=== PATIENT | male | born 1945 | race American Indian/Alaskan Native ===

== ENCOUNTER 2018-07-01 14:35 | Emergency (ER) | payer MEDICARE ==
--- NOTE | 2018-07-01 15:04 | Emergency Department Report ---
ED CPR HPI - General Stated Complaint: CARDIAC ARREST Time Seen by Provider: 07/01/18 14:53 Source: EMS Mode of arrival: Stretcher Limitations: Altered Mental Status, Physical Limitation - History of Present Illness Initial Comments: Patient arrived via EMS. Patient's been down for unknown amount of time. EMS is been doing CPR for 30 minutes. Report received from EMS. Patient shocked once and given multiple medications. Compression of the entire time. Patient has an oral airway but not an ET tube. . EMS patient's called EMS because he was found down in their bedroom. On known amount time down. Patient was shocked one time. Complaint: found unresponsive Place: home Bystander CPR Performed: No AED Applied by Bystander/[employer] Assistant: Yes Shock Advised: Yes Number of Shocks Delivered: 1 Initial Findings in the Field: unresponsive, no respirations, no pulse, VTACH/VFIB ROSC in the Field: No Associated Injuries: No Treatments Prior to Arrival: BMV, other airway device, chest compressions, defribrillated shocks # (1), epinephrine mgs #, sodium bicarbonate ED Review of Systems ROS: Stated complaint: CARDIAC ARREST Other details as noted in HPI Comment: Unobtainable due to pts medical conditions ED Past Medical Hx - Past Medical History Previous Medical History?: Yes Hx Hypertension: Yes Hx Heart Attack/AMI: Yes Hx Congestive Heart Failure: Yes Hx Diabetes: Yes - Surgical History Past Surgical History?: Yes Additional Surgical History: pacer - Family History Family history: no significant - Social History Smoking Status: Never Smoker Substance Use Type: None ED Physical Exam - General Limitations: Altered Mental Status, Physical Limitation General appearance: obtunded - Head Head exam: Present: atraumatic, normocephalic - Eye Eye exam: Present: other (was fixed and dilated) - ENT ENT exam: Present: other (oral airway in place.) - Neck Neck exam: Present: normal inspection - Respiratory Respiratory exam: Present: decreased breath sounds - Cardiovascular Cardiovascular Exam: Present: other (no pulse noted) - GI/Abdominal GI/Abdominal exam: Present: soft. Absent: distended - Rectal Rectal exam: Present: deferred - Extremities Exam Extremities exam: Present: other (IO noted in the left lower extremity) - Skin Skin exam: Present: warm, dry ED Course - Reevaluation(s) Reevaluation #1: Patient arrived via EMS. Patient's been down for unknown amount of time. EMS is been doing CPR for 30 minutes. Report received from EMS. Patient shocked once and given multiple medications. Compression of the entire time. Patient has an oral airway but not an ET tube. Patient will be intubated immediately. Patient intubated without difficulty. See intubation note. 07/01/18 14:30 Resuscitation efforts terminated. No pulse. No respiratory motion and no cardiac motion. Ultrasound done and no cardiac motion noted. See code note. 07/01/18 14:40 Family support given. Family meeting done 07/01/18 15:10 - Intubation Time Out Performed: Yes Sedative: none Laryngoscope: fiberoptic video scope Size: 4 Assist Device Used: fiberoptic device ET Tube Size: 8 Tube Secured Depth (cm): 24 Tube Secured Location: lips Tube Placement Confirmation: visualized tube passing t, equal breath sounds bilat, no breath sounds over epi, confirmation by capnometr Patient Tolerated Procedure: well Intubation Complications: none ED Medical Decision Making - Medical Decision Making Patient is a 73-year-old male presents to emergency room with cardiac arrest. Patient's resuscitation efforts were terminated due to unsuccessful. Patient's asystole on the monitor no pulse. No cardiac activity. Cardiac activity verified with ultrasound and no motion noted on ultrasound. Pacemaker turned off with magnet. pt intubated immediately Upon arrival. Report received from EMS. Patient prolonged downtime per EMS. Multiple rounds of CPR and medications were given. Family support given. Meeting with done. Code ran in accordance with ACLS guidelines. See code note. See intubation note Critical Care Time: Yes Critical care attestation.: If time is entered above; I have spent that time in minutes in the direct care of this critically ill patient, excluding procedure time. Critical Care Time: 35 minutes ED Disposition Clinical Impression: Cardiac arrest, cardiac arrest. Disposition: DC-20 Is pt being admited?: No Does the pt Need Aspirin: No Condition: Undetermined Time of Disposition: 15:20
== END 2018-07-01 15:00 ==
LOC: ED 14:35
DX: I46.9 Cardiac arrest, cause unspecified (principal); I11.0 Hypertensive heart disease with heart failure; I50.9 Heart failure, unspecified; I25.2 Old myocardial infarction; E11.9 Type 2 diabetes mellitus without complications